=== PATIENT | male | born 1970 | race Caucasian/White ===

== ENCOUNTER 2019-12-24 23:25 | Emergency (ER) | payer MEDICAID ==
[~2019-12-24] VITALS: Ht 175.3 cm; Wt 90.7 kg
[2019-12-24 23:30] VITALS: BP_SYST 123
--- NOTE | 2019-12-24 23:38 | NUR ---
Patient to ER bed 5 to gown for evaluation. Side rails up. Report given to CHRISSY KHANNA.
--- NOTE | 2019-12-25 00:01 | NUR ---
PATIENT BROUGHT IN COMPLAINING OF FOUL SMELLING URINE. DENIES ANY PAIN OR DYSURIA. PATIENT ALSO REQUESTING MEDICATION FOR CROHNS. NO OTHER COMPLAINTS/INJURIES PER PATIENT OR NOTED.
[2019-12-25 00:04] LABS: BILIRUBIN,URINE NEGATIVE (NEGATIVE); BLOOD, URINE 1+ (NEGATIVE); CLARITY/URINE CLEAR (CLEAR); COLOR,URINE YELLOW (YELLOW); GLUCOSE,URINE NEGATIVE (NEGATIVE); KETONES,URINE NEGATIVE (NEGATIVE); LEUKOCYTE ESTERASE ,URINE NEGATIVE (NEGATIVE); NITRITE, URINE NEGATIVE (NEGATIVE); PH,URINE 5.5 (5.0-8.0); PROTEIN URINE NEGATIVE (NEGATIVE); UROBILINOGEN,URINE 0.2 (0.2-1.0)
[2019-12-25 00:19] LABS: BACTERIA,URINE FEW /HPF (None Seen); WBC,URINE 0-3 /HPF (0-3)
--- NOTE | 2019-12-25 00:52 | NUR ---
ER Dr. Noel at bedside examining patient.
[2019-12-25 01:02] VITALS: BP_SYST 126
--- NOTE | 2019-12-25 01:02 | NUR ---
Patient given written and verbal discharge instructions and verbalizes understanding. ER MD discussed with patient the results and treatment provided. Patient in stable condition. ID arm band removed. No Rx given. Patient educated on pain management and to follow up with PMD. Pain Scale 0/10. Opportunity for questions provided and answered. Medication side effect fact sheet provided.
== END 2019-12-25 01:02 | disposition home or self-care (01) ==
LOC: SED 23:25
DX: N39.0 Urinary tract infection, site not specified (principal); K50.90 Crohn's disease, unspecified, without complications
CPT/HCPCS: 81000-TC; 99283